=== PATIENT | female | born 1980 | race Caucasian/White ===

== ENCOUNTER 2023-07-17 06:00 | Day surgery (SDC) | payer BC ==
[~2023-07-17] VITALS: Ht 149.9 cm; Wt 72.6 kg
[2023-07-17] MEDS ORDERED: CEFAZOLIN SOD 2 GM in D5W 50 ML IV ONE (07:00)
[2023-07-17 07:11] VITALS: O2SAT 100
[2023-07-17] MEDS ORDERED: DEXAMETHASONE SOD PHOSPHATE 4 MG/ML VIAL ONE (07:21)
[2023-07-17] MEDS ORDERED: fentaNYL CITRATE/PF 100 MCG/2 ML AMP ONE (07:35)
[2023-07-17] MEDS ORDERED: MIDAZOLAM HCL 2 MG/2 ML VIAL (VERSED) ONE (07:36)
[2023-07-17] MEDS ORDERED: HYDROcodone/ACETAMIN 5-325 MG TAB (NORCO/ VICODIN) PO PRN (08:30)
[2023-07-17] MEDS ORDERED: ONDANSETRON HCL 4 MG/2 ML VIAL IVP PRN (08:30)
[2023-07-17] MEDS ORDERED: OXYCODONE/ACETAMINOPHEN 5-325 TABLET PO PRN ×2 (08:30)
[2023-07-17] MEDS ORDERED: hydrALAZINE HCL 20 MG/ML VIAL IV PRN (08:45)
[2023-07-17] MEDS ORDERED: HYDROmorphone 1 MG/ML INJ. CARTRIDGE IVP PRN ×3 (08:45)
[2023-07-17] MEDS ORDERED: NALOXONE HCL 0.4 MG/ML AMP (NARCAN) IVP PRN (08:45)
[2023-07-17] MEDS ORDERED: ONDANSETRON HCL 4 MG/2 ML VIAL ONE (11:55)
[2023-07-17] MEDS: ONDANSETRON HCL 4 MG/2 ML VIAL IVP PRN (12:23)
[2023-07-17] MEDS ORDERED: HYDROmorphone 1 MG/ML INJ. CARTRIDGE ONE (12:59)
[2023-07-17 17:47] VITALS: BP_SYST 114; PULSE 91; RESP 17
== END 2023-07-17 16:16 | disposition home or self-care (01) ==
LOC: SMU 06:00 → SDS 06:00
PROVIDERS: ATTEND Specialist
DX: N85.2 Hypertrophy of uterus (principal); N80.03 Adenomyosis of the uterus; D25.2 Subserosal leiomyoma of uterus; N72 Inflammatory disease of cervix uteri; D27.0 Benign neoplasm of right ovary; D25.1 Intramural leiomyoma of uterus; N92.1 Excessive and frequent menstruation with irregular cycle; R10.2 Pelvic and perineal pain; E78.5 Hyperlipidemia, unspecified; G43.909 Migraine, unspecified, not intractable, without status migrainosus; Z98.891 History of uterine scar from previous surgery; Z79.899 Other long term (current) drug therapy
CPT/HCPCS: 87081; 58552; 88305; 88307; J3490 ×2; J0690; J1100; J1885; J3465; J2405; J2704; J3010; J1170; J7060; J7120; C1727; S2900; E0190; J1940

== ENCOUNTER 2023-07-18 21:20 | Inpatient (IN) | payer BC ==
[~2023-07-18] VITALS: Ht 149.9 cm; Wt 72.6 kg
[2023-07-18 21:30] VITALS: BP_SYST 123; PULSE 92; RESP 18; TEMP 98.1; O2SAT 99
[2023-07-18] MEDS: IBUPROFEN 600 MG TABLET PO ONE (23:12)
[2023-07-18] MEDS: ACETAMINOPHEN 500 MG TABLET PO ONE (23:12)
[2023-07-19 01:35] LABS: BASOPHILS % (AUTO) 0.3 % (0.0-2.0); EOSINOPHILS # (AUTO) 0.1 K/uL (0.0-0.4); EOSINOPHILS % (AUTO) 0.7 % (0.0-4.0); HEMATOCRIT 31.4 % (36-48); HEMOGLOBIN 10.9 g/dL (12.0-16.0); LYMPHOCYTES # (AUTO) 2.3 K/uL (1.0-5.5); LYMPHOCYTES % (AUTO) 26.2 % (20.5-51.5); MEAN CORPUSCULAR HEMOGLOBIN 30 pg (27-31); MEAN CORPUSCULAR HGB CONC 35 % (32-36); MEAN CORPUSCULAR VOLUME 85 fL (79.0-98.0); MONOCYTES # (AUTO) 0.7 K/uL (0.0-1.0); MONOCYTES % (AUTO) 7.6 % (1.7-9.3); NEUTROPHILS # (AUTO) 5.8 K/uL (1.8-7.7); NEUTROPHILS % (AUTO) 65.2 % (40.0-70.0); PLATELET COUNT (AUTO) 235 K/uL (130-430); RED BLOOD CELL COUNT(AUTO) 3.69 MIL/uL (4.2-6.2); RED CELL DISTRIBUTION WIDTH 12.4 % (9.0-15.0); WHITE BLOOD COUNT (AUTO) 8.9 K/uL (4.8-10.8)
[2023-07-19 01:48] LABS: BILIRUBIN,DIRECT 0.1 mg/dL (0.0-0.3); CREATININE 0.67 mg/dL (0.55-1.30); POTASSIUM 3.7 mmol/L (3.5-5.1); PROTHROMBIN TIME 10.4 SECS (9.5-12.5); TOTAL BILIRUBIN 0.4 mg/dL (0.0-1.0); TOTAL PROTEIN, SERUM 6.9 g/dL (6.4-8.3)
[2023-07-19] MEDS: ENOXAPARIN SODIUM 60 MG/0.6 ML SYRINGE SUBCUT ONE (03:45)
[2023-07-19] MEDS ORDERED: SIMETHICONE 40 MG/0.6 ML ML PO ONE (04:00)
[2023-07-19] MEDS ORDERED: SIMETHICONE 80 MG TAB.CHEW ONE (04:09)
[2023-07-19] MEDS: SIMETHICONE 80 MG TAB.CHEW PO ONE ×2 (04:13→21:57)
[2023-07-19] MEDS ORDERED: MORPHINE 2 MG/ML INJ. SYRINGE IVP PRN (04:15)
[2023-07-19] MEDS ORDERED: ONDANSETRON HCL 4 MG/2 ML VIAL IVP PRN (04:15)
[2023-07-19 07:47] LABS: BASOPHILS % (AUTO) 0.2 % (0.0-2.0); EOSINOPHILS # (AUTO) 0.1 K/uL (0.0-0.4); EOSINOPHILS % (AUTO) 0.8 % (0.0-4.0); HEMATOCRIT 32.6 % (36-48); HEMOGLOBIN 11.2 g/dL (12.0-16.0); LYMPHOCYTES # (AUTO) 1.9 K/uL (1.0-5.5); MEAN CORPUSCULAR HEMOGLOBIN 30 pg (27-31); MEAN CORPUSCULAR HGB CONC 34 % (32-36); MEAN CORPUSCULAR VOLUME 86 fL (79.0-98.0); MONOCYTES # (AUTO) 0.6 K/uL (0.0-1.0); MONOCYTES % (AUTO) 6.4 % (1.7-9.3); NEUTROPHILS # (AUTO) 6.2 K/uL (1.8-7.7); NEUTROPHILS % (AUTO) 70.6 % (40.0-70.0); PLATELET COUNT (AUTO) 245 K/uL (130-430); RED BLOOD CELL COUNT(AUTO) 3.78 MIL/uL (4.2-6.2); RED CELL DISTRIBUTION WIDTH 12.2 % (9.0-15.0); WHITE BLOOD COUNT (AUTO) 8.8 K/uL (4.8-10.8)
[2023-07-19 08:06] LABS: CALCIUM 8.4 mg/dL (8.4-11.0); CREATININE 0.72 mg/dL (0.55-1.30); POTASSIUM 3.7 mmol/L (3.5-5.1); TOTAL BILIRUBIN 0.3 mg/dL (0.0-1.0); TOTAL PROTEIN, SERUM 6.9 g/dL (6.4-8.3)
[2023-07-19] MEDS ORDERED: OXYCOD/APAP (08:30)
[2023-07-19] MEDS ORDERED: ACET-73 PO (08:30)
[2023-07-19] MEDS ORDERED: IBUP-1505 PO (08:30)
[2023-07-19 10:00] VITALS: BP_SYST 131; PULSE 79; RESP 17; TEMP 97.5; O2SAT 100
[2023-07-19 10:08] VITALS: O2SAT 98
[2023-07-19] MEDS: APIXABAN 2.5 MG TABLET PO SCH (11:59)
[2023-07-19 12:02] VITALS: BP_SYST 128; PULSE 74; RESP 17; TEMP 98.1; O2SAT 98
[2023-07-19] MEDS: ACETAMINOPHEN 500 MG TABLET PO PRN (18:02)
[2023-07-19 20:00] VITALS: BP_SYST 113; PULSE 87; RESP 18; TEMP 98.6; O2SAT 97
[2023-07-19] MEDS: HYDROcodone/ACETAMIN 5-325 MG TAB (NORCO/ VICODIN) PO PRN (22:01)
[2023-07-20] VITALS: BP_SYST 101; PULSE 75; RESP 18; TEMP 98.4; O2SAT 95
[2023-07-20 06:21] LABS: BASOPHILS % (AUTO) 0.4 % (0.0-2.0); EOSINOPHILS # (AUTO) 0.2 K/uL (0.0-0.4); EOSINOPHILS % (AUTO) 3.2 % (0.0-4.0); HEMATOCRIT 30.8 % (36-48); HEMOGLOBIN 10.7 g/dL (12.0-16.0); LYMPHOCYTES # (AUTO) 2.1 K/uL (1.0-5.5); LYMPHOCYTES % (AUTO) 35.6 % (20.5-51.5); MEAN CORPUSCULAR HEMOGLOBIN 30 pg (27-31); MEAN CORPUSCULAR HGB CONC 35 % (32-36); MEAN CORPUSCULAR VOLUME 86 fL (79.0-98.0); MONOCYTES # (AUTO) 0.4 K/uL (0.0-1.0); NEUTROPHILS # (AUTO) 3.2 K/uL (1.8-7.7); NEUTROPHILS % (AUTO) 53.8 % (40.0-70.0); PLATELET COUNT (AUTO) 241 K/uL (130-430); RED CELL DISTRIBUTION WIDTH 12.2 % (9.0-15.0); WHITE BLOOD COUNT (AUTO) 5.9 K/uL (4.8-10.8)
[2023-07-20 06:35] LABS: ALBUMIN 2.7 g/dL (3.4-4.8); CALCIUM 8.3 mg/dL (8.4-11.0); CREATININE 0.51 mg/dL (0.55-1.30); POTASSIUM 3.7 mmol/L (3.5-5.1); TOTAL BILIRUBIN 0.3 mg/dL (0.0-1.0); TOTAL PROTEIN, SERUM 6.6 g/dL (6.4-8.3)
[2023-07-20 08:13] VITALS: O2SAT 98
[2023-07-20 08:25] VITALS: BP_SYST 95; PULSE 87; RESP 18; TEMP 97.3; O2SAT 98
[2023-07-20] MEDS: SIMETHICONE 80 MG TAB.CHEW PO SCH (08:59)
[2023-07-20] MEDS ORDERED: SIME80TA15 PO (10:43)
[2023-07-20] MEDS ORDERED: APIX5TAB PO (10:43)
[2023-07-20 11:38] VITALS: BP_SYST 96; PULSE 82; RESP 18; TEMP 98; O2SAT 100
== END 2023-07-20 12:45 | disposition home or self-care (01) | DRG 300 ==
LOC: SED 21:20 → SMU 07-19 04:02
PROVIDERS: ADMIT Family Medicine; ATTEND Family Medicine
DX: I82.411 Acute embolism and thrombosis of right femoral vein (principal); E44.0 Moderate protein-calorie malnutrition; D64.9 Anemia, unspecified; Z79.899 Other long term (current) drug therapy; Z90.710 Acquired absence of both cervix and uterus; Z68.32 Body mass index [BMI] 32.0-32.9, adult
CPT/HCPCS: 36415; 80048; 80053; 80076; 85025; 85610; 85730; 93971; 99285; J1650